=== PATIENT | female | born 1995 | race Caucasian/White ===

== ENCOUNTER 2017-09-20 09:17 | Emergency (ER) | payer BC ==
[~2017-09-20] VITALS: Ht 167.6 cm; Wt 129.3 kg
[~2017-09-20 09:17] MED LIST: ADVIL200 MG PO; ASPIR 8181 M1 PO; CEFDINIR300 MG PO; GABAPENTIN300 MG PO; IBUPROFEN800 MG PO; LANTISEPTIC113 GM SC; LANTUS 10100 UNITS/ SC; NOVOLOG 10100 UNITS/ SC; OXAYDO5 MG PO; PRENATAL VITAM1 EA10 PO; ZOFRAN ODT8 MG PO; ZOLOFT50 MG PO
[2017-09-20 09:44] LABS: HEMATOCRIT 39.2 % (36.0-46.0); HEMOGLOBIN 13.2 G/DL (11.9-15.5); MCH 26.5 PG (29.0-34.0); MCHC 33.7 G/DL (30.0-36.0); MCV 78.6 FL (83-99); PLATELET COUNT 238 K/uL (156-360); RBC DIS.WIDTH-CV 13.3 % (11.8-14.6); RBC DIS.WIDTH-SD 38.2 % (39-53); RED BLOOD COUNT 4.99 M/uL (3.80-5.20)
[2017-09-20 12:16] LABS: APPEARANCE CLEAR ((CLEAR)); BILIRUBIN NEGATIVE; BLOOD MODERATE; COLOR YELLOW ((YELLOW)); GLUCOSE (STRIP) NEGATIVE; KETONES NEGATIVE; LEUKOCYTES NEGATIVE; NITRITE NEGATIVE; PROTEIN (STRIP) NEGATIVE; SPECIFIC GRAVITY 1.012 (1.000-1.030); UROBILINOGEN 0.2 MG/DL (0.2-1.0)
[2017-09-20 12:33] LABS: BACTERIA RARE /HPF; EPITHELIAL CELLS RARE /HPF; HYALINE CASTS 0-5 /LPF; MUCUS TRACE /LPF; RED BLOOD CELLS 0-5 /HPF (0-5); UCUL ADDED? NO; WHITE BLOOD CELLS 0-5 /HPF (0-5)
[2017-09-20 14:36] VITALS: BP 128/77
[2017-09-24] MEDS ORDERED: ZOFRAN4 MG PO (14:54)
[2017-09-24] MEDS ORDERED: PERCOCET 5/31 TABLET PO (14:54)
== END 2017-09-20 14:37 | disposition home or self-care (01) ==
LOC: EME 09:17
DX: O20.9 Hemorrhage in early pregnancy, unspecified (principal); O20.0 Threatened abortion; O99.011 Anemia complicating pregnancy, first trimester; Z3A.01 Less than 8 weeks gestation of pregnancy; Z88.8 Allergy status to other drugs, medicaments and biological substances
CPT/HCPCS: 76801; 81003; 84702; 85027; 86850; 86900; 86901

== ENCOUNTER 2017-09-22 09:42 | Emergency (ER) | payer BC ==
[~2017-09-22] VITALS: Ht 167.6 cm; Wt 128.5 kg
[2017-09-22 10:35] LABS: HEMOGLOBIN 12.8 G/DL (11.9-15.5); MCH 27.1 PG (29.0-34.0); MCHC 34.6 G/DL (30.0-36.0); MCV 78.4 FL (83-99); PLATELET COUNT 228 K/uL (156-360); RBC DIS.WIDTH-CV 13.3 % (11.8-14.6); RED BLOOD COUNT 4.72 M/uL (3.80-5.20); WHITE BLOOD COUNT 8.7 K/uL (4.1-10.2)
[2017-09-22 13:09] LABS: APPEARANCE CLEAR ((CLEAR)); BILIRUBIN NEGATIVE; BLOOD NEGATIVE; COLOR YELLOW ((YELLOW)); GLUCOSE (STRIP) NEGATIVE; KETONES 20; LEUKOCYTES NEGATIVE; NITRITE NEGATIVE; PROTEIN (STRIP) NEGATIVE; SPECIFIC GRAVITY 1.013 (1.000-1.030); UCUL ADDED? NO; UROBILINOGEN 0.2 MG/DL (0.2-1.0)
[2017-09-22] MEDS ORDERED: PERCOCET 5/31 TABLET PO (15:06)
[2017-09-22] MEDS ORDERED: ZOFRAN ODT4 MG PO (15:06)
[2017-09-22 15:21] VITALS: BP 133/80
[2017-09-24] MEDS ORDERED: ZOFRAN4 MG PO (14:54)
[2017-09-24] MEDS ORDERED: PERCOCET 5/31 TABLET PO (14:54)
== END 2017-09-22 15:22 | disposition home or self-care (01) ==
LOC: EME 09:42
DX: O02.0 Blighted ovum and nonhydatidiform mole (principal); Z3A.00 Weeks of gestation of pregnancy not specified; Z90.49 Acquired absence of other specified parts of digestive tract; Z91.040 Latex allergy status; Z88.8 Allergy status to other drugs, medicaments and biological substances
CPT/HCPCS: 76801; 81003; 84702; 85027; 99281; 99284

== ENCOUNTER 2017-09-26 09:42 | Day surgery (SDC) | payer BC ==
[~2017-09-26] VITALS: Ht 167.6 cm; Wt 128.4 kg
[~2017-09-26 09:42] MED LIST changes: +PERCOCET 5/31 TABLET PO; +ZOFRAN ODT4 MG PO; +ZOFRAN4 MG PO
[2017-09-26 10:33] VITALS: BP 128/73
[2017-09-26 13:35] VITALS: BP 123/68
[2017-09-26 14:35] VITALS: BP 133/71
== END 2017-09-26 14:35 | disposition home or self-care (01) ==
LOC: SDC 09:42
PROVIDERS: Obstetrics & Gynecology Obstetrics
PROC: 10D17ZZ Extraction of Products of Conception, Retained, Via Natural or Artificial Opening (ICD-10-PCS; principal; 2017-09-26)
DX: O02.1 Missed abortion (principal)
CPT/HCPCS: 82948; 88305; J0131; J1885; J2175; J2210; J2250; J2405; J2765; J3010